=== PATIENT | female | born 1985 | race African-American/Black ===

== ENCOUNTER 2020-11-28 19:01 | Inpatient (IN) | payer OTHER, MEDICAID, SELFPAY ==
[2020-11-28 19:08] VITALS: BP 122/79; PULSE 84; RESP 18; TEMP 37.1; O2SAT 96; BMI 36.2
--- NOTE | 2020-11-28 19:46 | ED_ITS ---
HPI - Psych General Chief Complaint: Psychiatric Symptoms Stated Complaint: Crisis Source: patient Mode of arrival: ambulatory Limitations: no limitations History of Present Illness HPI Narrative: 35-year-old female presents with suicidal ideation and significant life stressors. States that her kids have been taken away, she got kicked out of the snf, feels depressed and wants to kill herself. MD complaint: suicidal ideation, feels depressed and substance abuse Onset (ago): week(s) Duration: constant History of same: Yes Relieving factors: none Exacerbating factors: drug use Context: recent drug abuse and significant life stressor Associated psychiatric symptoms: depression and suicidal ideation Associated symptoms: denies other symptoms If self harm: admits thoughts of self harm Related Data Allergies Allergy/AdvReac Type Severity Reaction Status Date / Time No Known Allergies Allergy Verified 11/28/20 19:31 Review of Systems Review of Systems: Constitutional: No Fever, No Chills ENT/Mouth: No Ear Pain, No Nasal Congestion, No sore throat Eyes: No Eye Pain, No Swelling, No Redness Cardiovascular: No Chest Pain, No SOB Respiratory: No Cough, No Sputum, No Dyspnea Gastrointestinal: No Nausea, No Vomiting, No Diarrhea, No Hematochezia, No Melena Genitourinary: No Dysuria, No Urinary Frequency, No Hematuria Musculoskeletal: No Myalgias Skin: No Skin Lesions, No rash Neuro: No Weakness, No Numbness, No Paresthesias, No Dizziness, No Headache Psych: positive Anxiety, positive Depression, positive SI, positive substance abuse Heme/Lymph: No Lymphadenopathy Endocrine: No Polyuria, No Polydipsia Yes all other systems are reviewed and are negative [facility] Past Medical History Attestation statement: The following information was validated with the patient. Source: old records reviewed Medical History Asthma COPD (chronic obstructive pulmonary disease) Social History Social History Advance Directives: No Advance Directives Information Provided: No Physical Exam Vital Signs: Vital Signs: Last Vital Signs Temp 98.8 F 11/28/20 19:08 Pulse 84 11/28/20 19:08 Resp 18 11/28/20 19:08 BP 122/79 11/28/20 19:08 Pulse Ox 96 11/28/20 19:08 Body Mass Index 36.2 Appearance: Alert. Oriented X3. Moderate emotional distress. Eyes: Pupils equal, round and reactive to light. ENT: Pharynx normal. Neck: Normal inspection. Neck supple. CVS: Normal heart rate and rhythm. Pulses normal. Respiratory: No respiratory distress. Breath sounds normal. Abdomen: Soft and nontender. Skin: Skin warm and dry. Normal skin color. Normal skin turgor. Extremities: No lower extremity edema. Gait well balanced well coordinated. Neuro: No motor deficit. No sensory deficit. Cranial nerves 2-12 intact. Course Course Course Narrative: 35-year-old female presents with suicidal ideation, substance abuse, with significant life stressors. Plan of care is for BHN consult, and labs. Urinalysis indicates UTI. Will treat with Macrobid. Physician observation started at this time. MDM - Psych Differential Diagnosis Differential diagnosis: Likely suicidal ideation, depression and substance abuse Medical Records Attestation: I reviewed the patient's medical records. Lab Data Attestation: I reviewed the patient's lab results. Labs: Lab Results 11/28/20 11/28/20 11/28/20 Range/Units 19:39 19:40 19:40 Urine Color YELLOW Urine Appearance CLEAR Urine pH 6.0 (5.0-8.0) Ur Specific [place] 1.025 (1.005-1.025) Urine Protein TRACE (NEG-TRACE) MG/DL Urine Glucose (UA) NEG (NEG) MG/DL Urine Ketones NEG (NEG) MG/DL Urine Blood 3+ H (NEG) Urine Nitrite NEG (NEG) Ur Leukocyte Esterase TRACE H (NEG) Urine RBC 1-4 (0) /HPF Urine WBC 1-4 (0-4) /HPF Ur Squamous Epith Cells TRACE /LPF Urine Bacteria NONE /LPF Urine Test NEGATIVE (NEGATIVE) Urine Opiates Screen (Not Detect) Urine Fentanyl Screen (Not Detect) Ur Barbiturates Screen (Not Detect) Ur Phencyclidine Scrn (Not Detect) Ur Amphetamines Screen (Not Detect) U Benzodiazepines Scrn (Not Detect) Urine Cocaine Screen (Not Detect) U Marijuana (THC) Screen (Not Detect) COVID-19 (RALPH) Negative (Negative) COVID-19 Clin Com See Note 11/28/20 Range/Units 19:40 Urine Color Urine Appearance Urine pH (5.0-8.0) Ur Specific [place] (1.005-1.025) Urine Protein (NEG-TRACE) MG/DL Urine Glucose (UA) (NEG) MG/DL Urine Ketones (NEG) MG/DL Urine Blood (NEG) Urine Nitrite (NEG) Ur Leukocyte Esterase (NEG) Urine RBC (0) /HPF Urine WBC (0-4) /HPF Ur Squamous Epith Cells /LPF Urine Bacteria /LPF Urine Test (NEGATIVE) Urine Opiates Screen Not Detected (Not Detect) Urine Fentanyl Screen Not Detected (Not Detect) Ur Barbiturates Screen Not Detected (Not Detect) Ur Phencyclidine Scrn Not Detected (Not Detect) Ur Amphetamines Screen Not Detected (Not Detect) U Benzodiazepines Scrn Not Detected (Not Detect) Urine Cocaine Screen POSITIVE H (Not Detect) U Marijuana (THC) Screen POSITIVE H (Not Detect) COVID-19 (RALPH) (Negative) COVID-19 Clin Com Discharge Plan Discharge Clinical Impression: Depression, UTI (urinary tract infection), Substance abuse
[2020-11-28 19:49] LABS: Appearance Urine CLEAR; Color Urine YELLOW; Glucose Urine UA NEG (NEG); Leukocyte Esterase Urine TRACE (NEG); Nitrite Urine NEG (NEG); Specific Gravity - Urine 1.025 (1.005-1.025); UACC Culture Trigger YES; Urine Blood 3+ (NEG); Urine Ketones NEG (NEG); Urine Protein TRACE MG/DL (NEG-TRACE)
[2020-11-28 19:56] LABS: UPreg QC Valid YES; Urine Pregnancy NEGATIVE (NEGATIVE)
[2020-11-28 20:01] LABS: Amphetamine Screen Urine Not Detected (Not Detect); Barbiturates, Urine Not Detected (Not Detect); Benzodiazepines Screen Urine Not Detected (Not Detect); Cannabinoid Screen Urine POSITIVE (Not Detect); Cocaine Screen Urine POSITIVE (Not Detect); Fentanyl, urine Not Detected (Not Detect); Opiate Screen Urine Not Detected (Not Detect); Phencyclidine Screen Urine Not Detected (Not Detect)
[2020-11-28 20:02] LABS: COVID-19 Test Negative (Negative); IDNOW Serial# 9DD0AD1C
[2020-11-28 20:15] LABS: Squamous Epithelial Cell Urine TRACE /LPF; UACC CULT YES
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
--- NOTE | 2020-11-29 00:42 | PC.NURSE ---
Patient in bed resting, no distress observed/reported, BHN referral completed/confirmed patient may be seen by BHN overnight, will continue to monitor.
--- NOTE | 2020-11-29 01:38 | PC.NURSE ---
ОЛЬГАN with patient.
[2020-11-29] MEDS: Nitrofurantoin Monohyd/M-Cryst 100 MG CAPSULE PO ×3 (02:51→21:43)
--- NOTE | 2020-11-29 05:53 | PC.NURSE ---
Patient slept through the night, no distress observed/reported, patient is positive for UTI being treated Macrobid 100 mg BID, patient is not currently on any medication, BHN assessed/patient compliant/disposition section 12 inpatient bed search, patient and provider aware, behavior appropriate, will continue to monitor.
--- NOTE | 2020-11-29 07:21 | PC.NURSE ---
Pt sleeping. Chest rise noted. Report received from Kodi FITZGERALD.
[2020-11-29 07:49] VITALS: BP 119/68; PULSE 68; RESP 14; TEMP 36.8; O2SAT 99
--- NOTE | 2020-11-29 10:56 | PC.NURSE ---
Pt awake now, ate full breakfast. States she's comfortable. Good eye contact,, steady on feet to BR, calm and cooperative. Aware of bedsearch.
--- NOTE | 2020-11-29 16:08 | ECG_ITS ---
Test Reason : MED CLEARANCE Blood Pressure : / mmHG Vent. Rate : 070 BPM Atrial Rate : 070 BPM P-R Int : 132 ms QRS Dur : 072 ms QT Int : 416 ms P-R-T Axes : 024 060 046 degrees QTc Int : 449 ms Normal sinus rhythm Low voltage QRS Borderline ECG No previous ECGs available Referred By: Generic ED Physician Electronically Signed By:DIPESH BARBER
[2020-11-29 17:07] LABS: MANUAL DIFF FLAG NO
[2020-11-29 17:09] LABS: Basophils Percent Auto 0.6 % (0-2); Eosinophils Absolute Auto 0.2 X10*3/uL (0.0-0.4); Eosinophils Percent Auto 3.5 % (0-4); Hematocrit 37.8 % (37-47); Hemoglobin 12.6 g/dl (12.0-16.0); Imm Gran Abs Auto 0.02 X10*3/uL (0.00-0.03); Imm Gran Pct Auto 0.3 % (0.0-0.4); Lymphocytes Absolute Auto 2.4 X10*3/uL (1.2-4.9); Lymphocytes Percent Auto 36.1 % (20-40); Mean Corpuscular HGB Conc 33.3 g/dl (31.0-35.0); Mean Corpuscular Hemoglobin 30.3 pg (27.0-33.0); Mean Corpuscular Volume 90.9 fL (80-98); Mean Platelet Volume 9.3 fL (9.4-12.3); Monocytes Absolute Auto 0.5 X10*3/uL (0.1-1.2); Neutrophils Absolute Auto 3.4 X10*3/uL (2.0-8.3); Neutrophils Percent Auto 51.5 % (45-73); Platelet Count 343 X10*3/uL (160-400); Red Blood Count 4.16 X10*6/uL (4.20-5.50); Red Cell Distribution Width 13.1 % (11.0-16.0); White Blood Count 6.5 X10*3/uL (4.8-10.8)
[2020-11-29 17:30] VITALS: BP 119/64; PULSE 83; TEMP 37.1; O2SAT 99
[2020-11-29 17:37] LABS: Alanine Aminotransferase 60 U/L (0-31); Albumin Level 3.8 g/dL (3.5-5.0); Alkaline Phosphatase 214 U/L (39-117); Anion Gap 10 (12-20); Aspartate Amino Transferase 38 U/L (5-31); Bilirubin Total 0.4 mg/dL (0.0-1.0); Blood Urea Nitrogen 11 mg/dL (9-16); Calcium 9.7 mg/dL (8.4-10.2); Carbon Dioxide 28 mmol/L (22-29); Chloride 105 mmol/L (96-108); Estimated Glomerular Filt Rate > 60; Glucose Random 96 mg/dL (60-115); Potassium 4.6 mmol/L (3.3-5.1); Sodium 138 mmol/L (135-145); Total Protein 6.9 g/dL (6.5-8.0)
[2020-11-29] MEDS: hydrOXYzine HCL 25 MG TABLET PO (21:42)
[2020-11-29 21:43] VITALS: BP 131/80; PULSE 70
[2020-11-29] MEDS: Prazosin HCL 1 MG CAPSULE 2 MG PO (21:43)
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
[2020-11-30 09:15] VITALS: BP 121/78; PULSE 75; RESP 14; TEMP 36.7; O2SAT 98
[2020-11-30] MEDS: Nitrofurantoin Monohyd/M-Cryst 100 MG CAPSULE PO ×2 (09:15→22:30)
[2020-11-30] MEDS: buPROPion HCl XL 150 MG TAB.ER.24H PO (09:15)
[2020-11-30] MEDS: Escitalopram Oxalate 10 MG TABLET PO (09:15)
--- NOTE | 2020-11-30 11:34 | HO.PSYCHPN ---
Subjective Subjective Date of Service: 11/30/20 Reason For Visit: SI, depression Subjective Notes: Conditional Voluntary Interim History: Patient seen. DW team. Patient seen in her room. She reports she was having SI because her children were taken away from her 11/19 and placed with her mother. She was already under DCF investigation. Her friend turned on me and informed DCF of her continued drinking and drug use. Cocaine + on admit. Patient says she still feels like her kds would be better off without her. She denies active SI or that she would hurt self on the unit. Denies AH. Reports she as off meds. Agreed to restart per admission note. Tolerating meds well. Medication Compliance: Yes Review of Systems Acute medical concerns: No Medical Review of Systems: unchanged Mental Status Exam Mental Status Exam Patient Appearance: Appropriate Patient Orientation: Person, Place, Time and Situation Level of Consciousness: Awake and Alert Patient Behavior: Cooperative, Passive, Timid and Poor Eye Contact Mood Description: Withdrawn, Constricted, Depressed and Sad Affect Description: Withdrawn, Depressed and Sad Patient Cognition Impaired: No Ability to Follow Directions: Excellent Speech Pattern: Monotone and Soft-Spoken Memory Description: Intact Hallucinations: None Delusions: Not Present Thought Process: Intact Thought Content: positive for Goal Oriented and positive for Linear Depressive Symptoms: Crying Spells, Hopelessness, Feelings of Guilt, Unhappiness and Thoughts of /Suicide Abnormal Motor Activity Signs and Symptoms: Psychomotor Retardation Judgement: Fair Diagnostics Vital Signs (24Hr): Vital Signs - 24 hr 11/29/20 17:30 11/29/20 21:43 11/30/20 09:15 Temperature 98.7 F 98.1 F Pulse Rate 83 70 75 Respiratory Rate 14 Blood Pressure 119/64 131/80 121/78 Pulse Oximetry 99 98 Body Mass Index 36.2 Labs Results: 11/29/20 17:01 11/29/20 17:01 Labs: Laboratory Results - last 48 hr 11/28/20 11/28/20 11/28/20 19:39 19:40 19:40 WBC RBC Hgb Hct MCV MCH MCHC RDW Plt Count MPV Immature Gran % (Auto) Neut % (Auto) Lymph % (Auto) [place] % (Auto) Eos % (Auto) Baso % (Auto) Lymph # (Auto) [place] # (Auto) Eos # (Auto) Baso # (Auto) Abs Immat Gran (auto) Absolute Neuts (auto) Absolute Nucleated RBC Nucleated RBC % (auto) Sodium Potassium Chloride Carbon Dioxide Anion Gap BUN Creatinine Estim Creat Clear Calc Estimated GFR Random Glucose Calcium Total Bilirubin AST ALT Alkaline Phosphatase Total Protein Albumin Urine Color YELLOW Urine Appearance CLEAR Urine pH 6.0 Ur Specific Abbott 1.025 Urine Protein TRACE Urine Glucose (UA) NEG Urine Ketones NEG Urine Blood 3+ H Urine Nitrite NEG Ur Leukocyte Esterase TRACE H Urine RBC 1-4 Urine WBC 1-4 Ur Squamous Epith Cells TRACE Urine Bacteria NONE Urine Test NEGATIVE Urine Opiates Screen Urine Fentanyl Screen Ur Barbiturates Screen Ur Phencyclidine Scrn Ur Amphetamines Screen U Benzodiazepines Scrn Urine Cocaine Screen U Marijuana (THC) Screen COVID-19 (RALPH) Negative COVID-19 Clin Com See Note 11/28/20 11/29/20 11/29/20 19:40 17:01 17:01 WBC 6.5 RBC 4.16 L Hgb 12.6 Hct 37.8 MCV 90.9 MCH 30.3 MCHC 33.3 RDW 13.1 Plt Count 343 MPV 9.3 L Immature Gran % (Auto) 0.3 Neut % (Auto) 51.5 Lymph % (Auto) 36.1 [place] % (Auto) 8.0 Eos % (Auto) 3.5 Baso % (Auto) 0.6 Lymph # (Auto) 2.4 [place] # (Auto) 0.5 Eos # (Auto) 0.2 Baso # (Auto) 0.0 Abs Immat Gran (auto) 0.02 Absolute Neuts (auto) 3.4 Absolute Nucleated RBC 0.000 Nucleated RBC % (auto) 0.0 Sodium 138 Potassium 4.6 Chloride 105 Carbon Dioxide 28 Anion Gap 10 L BUN 11 Creatinine 0.86 Estim Creat Clear Calc 95.0 Estimated GFR > 60 Random Glucose 96 Calcium 9.7 Total Bilirubin 0.4 AST 38 H ALT 60 H Alkaline Phosphatase 214 H Total Protein 6.9 Albumin 3.8 Urine Color Urine Appearance Urine pH Ur Specific Abbott Urine Protein Urine Glucose (UA) Urine Ketones Urine Blood Urine Nitrite Ur Leukocyte Esterase Urine RBC Urine WBC Ur Squamous Epith Cells Urine Bacteria Urine Test Urine Opiates Screen Not Detected Urine Fentanyl Screen Not Detected Ur Barbiturates Screen Not Detected Ur Phencyclidine Scrn Not Detected Ur Amphetamines Screen Not Detected U Benzodiazepines Scrn Not Detected Urine Cocaine Screen POSITIVE H U Marijuana (THC) Screen POSITIVE H COVID-19 ([facility]) COVID-19 Clin Com Medications Medications Current Medications Generic Name Dose Route Start Last Admin Trade Name Freq PRN Reason Stop Dose Admin Acetaminophen 650 mg 11/29/20 18:04 Acetaminophen 325 Mg Tablet PO Q6H PRN Headache/Pain Mild Scale (1-3) Al Hydroxide/Mg Hydroxide 30 ml 11/29/20 18:04 Magnesium Hydrox/Alum Hydrox 30 Ml Oral.Susp PO Q6H PRN Heartburn/Nausea Bupropion HCl 150 mg 11/30/20 09:00 11/30/20 09:15 Bupropion Hcl Xl 150 Mg Tab.Er.24h PO 150 mg DAILY ERMIAS Administration Escitalopram Oxalate 10 mg 11/30/20 09:00 11/30/20 09:15 Escitalopram Oxalate 10 Mg Tablet PO 10 mg DAILY ERMIAS Administration Hydroxyzine HCl 25 mg 11/29/20 18:04 11/29/20 21:42 Hydroxyzine Hcl 25 Mg Tablet PO 25 mg Q6H PRN Administration Anxiety Magnesium Hydroxide 30 ml 11/29/20 18:04 Milk Of Magnesia 30 Ml Oral.Susp PO DAILY PRN Constipation Nitrofurantoin Macrocrystals 100 mg 11/29/20 09:00 11/30/20 09:15 Nitrofurantoin Monohyd/M-Cryst 100 Mg Capsule PO 12/05/20 21:01 100 mg Q12H ERMIAS Administration Prazosin HCl 2 mg 11/29/20 21:00 11/29/20 21:43 Prazosin Hcl 1 Mg Capsule PO 2 mg BEDTIME ERMIAS Administration Protocol Trazodone HCl 50 mg 11/29/20 18:04 Trazodone Hcl 50 Mg Tablet PO BEDTIME PRN Insomnia Allergies Allergies Allergy/AdvReac Type Severity Reaction Status Date / Time No Known Allergies Allergy Verified 11/28/20 19:31 Assessment & Plan Assessment & Plan (1) Cocaine use disorder: Status: Acute Code(s): F14.10 - Cocaine abuse, uncomplicated (2) PTSD (post-traumatic stress disorder): Status: Acute Code(s): F43.10 - Post-traumatic stress disorder, unspecified (3) MDD (major depressive disorder), recurrent episode, moderate: Status: Acute Code(s): F33.1 - Major depressive disorder, recurrent, moderate (4) Anxiety disorder, unspecified: Status: Acute Code(s): F41.9 - Anxiety disorder, unspecified Assessment and Plan: Viv is a 35 y.o. Female who carries a diagnosis of MDD, recurrent, AL, PTSD, and cocaine use disorder. She is currently presenting with sx of depression, anxiety, poor sleep, flashbacks, and nightmares. She is interested in obtaining OP therapy services, discussed DBT. She also plans to work with [facility] on getting custody of her children back. Open to substance use treatment. Says her past med regimen was helpful for her and she would like to re-start these meds including citalopram, wellbutrin XL, prazosin, and vistaril. Will start lexapro on unit, as citalopram is not on formulary.? Plan: 1. start lexapro 10 mg QD for sx of depression, anxiety, and PTSD- risks and benefits reviewed. 2. Start wellbutrin XL 150 mg QD for adjunct depression 3. Start prazosin 2 mg QHS for PTSD, hyperarousal, nightmares 4. Monitor response to medications. Monitor for safety in the milieu. Discharge on stabilization. Patient seen. Chart reviewed. Discussed with team. Obtain collateral contact info?as needed Greater than 50% of the session was spent on counseling and/or coordination of care Reason for contiued inpatient stay Substantial Risk for: harm to self and rapid decompensation
--- NOTE | 2020-11-30 13:01 | PC.NURSE ---
Microbiology report indicates urine is positive for Strep B. Dr Gaona Hospitalist informed by tiger text and responded, macrobid should be good.
[2020-11-30 18:00] VITALS: BP 134/61; PULSE 79; RESP 18; TEMP 36.2; O2SAT 97
[2020-11-30 22:30] VITALS: BP 135/78; PULSE 88
[2020-11-30] MEDS: hydrOXYzine HCL 25 MG TABLET PO (22:30)
[2020-11-30] MEDS: Prazosin HCL 1 MG CAPSULE 2 MG PO (22:30)
[2020-11-30] MEDS: traZODone HCL 50 MG TABLET PO (22:30)
[2020-12-01 08:30] VITALS: BP 110/58; PULSE 87; RESP 16; TEMP 36.6; O2SAT 98
[2020-12-01] MEDS: buPROPion HCl XL 150 MG TAB.ER.24H PO (08:36)
[2020-12-01] MEDS: Nitrofurantoin Monohyd/M-Cryst 100 MG CAPSULE PO ×2 (08:36→21:43)
[2020-12-01] MEDS: Escitalopram Oxalate 10 MG TABLET PO (08:36)
[2020-12-01] MEDS: hydrOXYzine HCL 25 MG TABLET PO ×2 (15:00→21:43)
--- NOTE | 2020-12-01 20:50 | P.PNPSI_ITS ---
Subjective Subjective Date of Service: 12/01/20 Reason For Visit: SI, depression Interim History: Patient seen. DW team. Patient has been getting out of her room. She is more engaged in the milieu. She feels more hopeful. She is tolerating restarting her meds. She denies SI. Medication Compliance: Yes Side effects from medications: No Attending Groups: Yes Review of Systems Review of Systems Constitutional: No Fever, No Chills ENT/Mouth: No Ear Pain, No Nasal Congestion, No sore throat Eyes: No Eye Pain, No Swelling, No Redness Cardiovascular: No Chest Pain, No SOB Respiratory: No Cough, No Sputum, No Dyspnea Gastrointestinal: No Nausea, No Vomiting, No Diarrhea, No Hematochezia, No Melena Genitourinary: No Dysuria, No Urinary Frequency, No Hematuria Musculoskeletal: No Myalgias Skin: No Skin Lesions, No rash Neuro: No Weakness, No Numbness, No Paresthesias, No Dizziness, No Headache Psych: positive Anxiety, positive Depression, positive SI, positive substance abuse Heme/Lymph: No Lymphadenopathy Endocrine: No Polyuria, No Polydipsia Yes all other systems are reviewed and are negative Mental Status Exam Mental Status Exam Narrative: A&O. In hospital attire, somewhat unkempt, hair dyed, overweight. Moderate eye contact, attentive. No Tics or Tremors. No abnormal involuntary movements. Calm, cooperative, engaged- somewhat withdrawn. Non-pressured speech, non-spontaneous with regular rate and rhythm, normal volume and prosody. No prolonged speech latency or dysarthria. Mood is ?depressed,? affect is tearful, dysphoric. Denies SI/SIB/HI upon inquiry. Denies A/VH or delusional thought content. Thoughts are coherent, organized. No known cognitive or memory impairment. Insight/ Judgment fair and adequate. In the milieu, she is calm and appropriate with behaviors. Patient Appearance: Appropriate Patient Orientation: Person, Place, Time and Situation Level of Consciousness: Awake and Alert Patient Behavior: Cooperative, Passive, Timid and Poor Eye Contact Mood Description: Withdrawn, Constricted, Depressed and Sad Affect Description: Withdrawn, Depressed and Sad Patient Cognition Impaired: No Ability to Follow Directions: Excellent Speech Pattern: Monotone and Soft-Spoken Memory Description: Intact Diagnostics Vital Signs (24Hr): Vital Signs - 24 hr 11/30/20 22:30 12/01/20 08:30 Temperature 97.9 F Pulse Rate 88 87 Respiratory Rate 16 Blood Pressure 135/78 110/58 L Pulse Oximetry 98 Body Mass Index 36.2 Labs Results: 11/29/20 17:01 11/29/20 17:01 Medications Medications Current Medications Generic Name Dose Route Start Last Admin Trade Name Freq PRN Reason Stop Dose Admin Acetaminophen 650 mg 11/29/20 18:04 Acetaminophen 325 Mg Tablet PO Q6H PRN Headache/Pain Mild Scale (1-3) Al Hydroxide/Mg Hydroxide 30 ml 11/29/20 18:04 Magnesium Hydrox/Alum Hydrox 30 Ml Oral.Susp PO Q6H PRN Heartburn/Nausea Bupropion HCl 150 mg 11/30/20 09:00 12/01/20 08:36 Bupropion Hcl Xl 150 Mg Tab.Er.24h PO 150 mg DAILY ERMIAS Administration Escitalopram Oxalate 10 mg 11/30/20 09:00 12/01/20 08:36 Escitalopram Oxalate 10 Mg Tablet PO 10 mg DAILY ERMIAS Administration Hydroxyzine HCl 25 mg 11/29/20 18:04 12/01/20 15:00 Hydroxyzine Hcl 25 Mg Tablet PO 25 mg Q6H PRN Administration Anxiety Magnesium Hydroxide 30 ml 11/29/20 18:04 Milk Of Magnesia 30 Ml Oral.Susp PO DAILY PRN Constipation Nitrofurantoin Macrocrystals 100 mg 11/29/20 09:00 12/01/20 08:36 Nitrofurantoin Monohyd/M-Cryst 100 Mg Capsule PO 12/05/20 21:01 100 mg Q12H ERMIAS Administration Prazosin HCl 2 mg 11/29/20 21:00 11/30/20 22:30 Prazosin Hcl 1 Mg Capsule PO 2 mg BEDTIME ERMIAS Administration Protocol Trazodone HCl 50 mg 11/29/20 18:04 11/30/20 22:30 Trazodone Hcl 50 Mg Tablet PO 50 mg BEDTIME PRN Administration Insomnia Allergies Allergies Allergy/AdvReac Type Severity Reaction Status Date / Time No Known Allergies Allergy Verified 11/28/20 19:31 Assessment & Plan Assessment & Plan (1) Cocaine use disorder: Status: Acute Code(s): F14.10 - Cocaine abuse, uncomplicated (2) PTSD (post-traumatic stress disorder): Status: Acute Code(s): F43.10 - Post-traumatic stress disorder, unspecified (3) MDD (major depressive disorder), recurrent episode, moderate: Status: Acute Code(s): F33.1 - Major depressive disorder, recurrent, moderate (4) Anxiety disorder, unspecified: Status: Acute Code(s): F41.9 - Anxiety disorder, unspecified Assessment and Plan: Viv is a 35 y.o. Female who carries a diagnosis of MDD, recurrent, AL, P TSD, and cocaine use disorder. She is currently presenting with sx of depression, anxiety, poor sleep, flashbacks, and nightmares. She is interested in obtaining OP therapy services, discussed DBT. She also plans to work with [facility] on getting custody of her children back. Open to substance use treatment. Says her past med regimen was helpful for her and she would like to re-start these meds including citalopram, wellbutrin XL, prazosin, and vistaril. Will start lexapro on unit, as citalopram is not on formulary.? Plan: 1. lexapro 10 mg QD for sx of depression, anxiety, and PTSD- risks and benefits reviewed. 2. wellbutrin XL 150 mg QD for adjunct depression 3. prazosin 2 mg QHS for PTSD, hyperarousal, nightmares 4. Monitor response to medications. Monitor for safety in the milieu. Discharge on stabilization. Patient seen. Chart reviewed. Discussed with team. Obtain collateral contact info?as needed Greater than 50% of the session was spent on counseling and/or coordination of care Reason for contiued inpatient stay Substantial Risk for: harm to self
[2020-12-01 21:40] VITALS: BP 135/78; PULSE 88; TEMP 36.8; O2SAT 98
[2020-12-01 21:43] VITALS: BP 135/78; PULSE 88
[2020-12-01] MEDS: traZODone HCL 50 MG TABLET PO (21:43)
[2020-12-01] MEDS: Prazosin HCL 1 MG CAPSULE 2 MG PO (21:43)
[2020-12-02 08:48] VITALS: BP 105/60; PULSE 74; RESP 16; TEMP 36.2; O2SAT 96
[2020-12-02] MEDS: Nitrofurantoin Monohyd/M-Cryst 100 MG CAPSULE PO ×2 (08:52→20:49)
[2020-12-02] MEDS: Escitalopram Oxalate 10 MG TABLET PO (08:52)
[2020-12-02] MEDS: buPROPion HCl XL 150 MG TAB.ER.24H PO (08:52)
--- NOTE | 2020-12-02 14:51 | HO.PSYCHPN ---
Subjective Subjective Date of Service: 12/02/20 Reason For Visit: SI, depression Interim History: pt reports she is feeling better than at admission. denies SI. has been on this regimen before and it has been helpful for her. agreeable to the plan to restart the medication and arrange for aftercare once stable. per staff, no SI/HI. reportedly believes she is despite negative test. no other notable events or behaviors. Mental Status Exam Mental Status Exam Narrative: A&O. In hospital attire, somewhat unkempt, hair dyed, overweight. Moderate eye contact, attentive. No Tics or Tremors. No abnormal involuntary movements. Calm, cooperative, engaged- somewhat withdrawn. Non-pressured speech, non-spontaneous with regular rate and rhythm, normal volume and prosody. No prolonged speech latency or dysarthria. Mood is ?better,? affect is constricted and non-labile. Denies SI upon inquiry. Thoughts are coherent, organized. No known cognitive or memory impairment. Insight/ Judgment fair and adequate. Patient Appearance: Appropriate Patient Orientation: Person, Place, Time and Situation Level of Consciousness: Awake and Alert Patient Behavior: Cooperative, Passive, Timid and Poor Eye Contact Mood Description: Withdrawn, Constricted, Depressed and Sad Affect Description: Withdrawn, Depressed and Sad Patient Cognition Impaired: No Ability to Follow Directions: Excellent Speech Pattern: Monotone and Soft-Spoken Memory Description: Intact Diagnostics Vital Signs (24Hr): Vital Signs - 24 hr 12/01/20 21:40 12/01/20 21:43 12/02/20 08:48 Temperature 98.2 F 97.2 F Pulse Rate 88 88 74 Respiratory Rate 16 Blood Pressure 135/78 135/78 105/60 Pulse Oximetry 98 96 Body Mass Index 36.2 Labs Results: 11/29/20 17:01 11/29/20 17:01 Medications Medications Current Medications Generic Name Dose Route Start Last Admin Trade Name Freq PRN Reason Stop Dose Admin Acetaminophen 650 mg 11/29/20 18:04 Acetaminophen 325 Mg Tablet PO Q6H PRN Headache/Pain Mild Scale (1-3) Al Hydroxide/Mg Hydroxide 30 ml 11/29/20 18:04 Magnesium Hydrox/Alum Hydrox 30 Ml Oral.Susp PO Q6H PRN Heartburn/Nausea Bupropion HCl 150 mg 11/30/20 09:00 12/02/20 08:52 Bupropion Hcl Xl 150 Mg Tab.Er.24h PO 150 mg DAILY ERMIAS Administration Escitalopram Oxalate 10 mg 11/30/20 09:00 12/02/20 08:52 Escitalopram Oxalate 10 Mg Tablet PO 10 mg DAILY ERMIAS Administration Hydroxyzine HCl 25 mg 11/29/20 18:04 12/01/20 21:43 Hydroxyzine Hcl 25 Mg Tablet PO 25 mg Q6H PRN Administration Anxiety Magnesium Hydroxide 30 ml 11/29/20 18:04 Milk Of Magnesia 30 Ml Oral.Susp PO DAILY PRN Constipation Nitrofurantoin Macrocrystals 100 mg 11/29/20 09:00 12/02/20 08:52 Nitrofurantoin Monohyd/M-Cryst 100 Mg Capsule PO 12/05/20 21:01 100 mg Q12H ERMIAS Administration Prazosin HCl 2 mg 11/29/20 21:00 12/01/20 21:43 Prazosin Hcl 1 Mg Capsule PO 2 mg BEDTIME ERMIAS Administration Protocol Trazodone HCl 50 mg 12/02/20 21:00 Trazodone Hcl 50 Mg Tablet PO BEDTIME ERMIAS Allergies Allergies Allergy/AdvReac Type Severity Reaction Status Date / Time No Known Allergies Allergy Verified 11/28/20 19:31 Assessment & Plan Assessment & Plan (1) Cocaine use disorder: Status: Acute Code(s): F14.10 - Cocaine abuse, uncomplicated (2) PTSD (post-traumatic stress disorder): Status: Acute Code(s): F43.10 - Post-traumatic stress disorder, unspecified (3) MDD (major depressive disorder), recurrent episode, moderate: Status: Acute Code(s): F33.1 - Major depressive disorder, recurrent, moderate (4) Anxiety disorder, unspecified: Status: Acute Code(s): F41.9 - Anxiety disorder, unspecified Assessment and Plan: Viv is a 35 y.o. Female who carries a diagnosis of MDD, recurrent, AL, PTSD, and cocaine use disorder. She is currently presenting with sx of depression, anxiety, poor sleep, flashbacks, and nightmares. She is interested in obtaining OP therapy services, discussed DBT. She also plans to work with [facility] on getting custody of her children back. Open to substance use treatment. Says her past med regimen was helpful for her and she would like to re-start these meds including citalopram, wellbutrin XL, prazosin, and vistaril. Will start lexapro on unit, as citalopram is not on formulary.? Plan: 1. lexapro 10 mg QD for sx of depression, anxiety, and PTSD- risks and benefits reviewed. 2. wellbutrin XL 150 mg QD for adjunct depression. increase dosing to 300 mg daily on . 3. prazosin 2 mg QHS for PTSD, hyperarousal, nightmares 4. trazodone 50 mg QHS for insomnia. 5. Monitor response to medications. Monitor for safety in the milieu. Discharge on stabilization. Patient seen. Chart reviewed. Discussed with team. Greater than 50% of the session was spent on counseling and/or coordination of care Reason for contiued inpatient stay Substantial Risk for: harm to self, inability to function and med/psych decompensation
[2020-12-02] MEDS: hydrOXYzine HCL 25 MG TABLET PO (16:39)
[2020-12-02 18:00] VITALS: BP 124/80; PULSE 85; RESP 18; TEMP 36.4; O2SAT 99
[2020-12-02] MEDS: traZODone HCL 50 MG TABLET PO (20:48)
[2020-12-02 20:49] VITALS: BP 124/80; PULSE 85
[2020-12-02] MEDS: Prazosin HCL 1 MG CAPSULE 2 MG PO (20:49)
[2020-12-02] MEDS: Milk of Magnesia 30 ML ORAL.SUSP PO (20:53)
[2020-12-03 08:31] VITALS: BP 123/63; PULSE 88; RESP 18; TEMP 36.6; O2SAT 98
[2020-12-03] MEDS: buPROPion HCl XL 150 MG TAB.ER.24H PO (08:39)
[2020-12-03] MEDS: Escitalopram Oxalate 10 MG TABLET PO (08:39)
[2020-12-03] MEDS: Nitrofurantoin Monohyd/M-Cryst 100 MG CAPSULE PO ×2 (08:39→20:28)
[2020-12-03] MEDS: hydrOXYzine HCL 25 MG TABLET PO ×2 (11:33→20:30)
[2020-12-03 20:10] VITALS: BP 110/75; PULSE 83; RESP 18; TEMP 36.8; O2SAT 97
[2020-12-03] MEDS: Prazosin HCL 1 MG CAPSULE 2 MG PO (20:27)
[2020-12-03] MEDS: traZODone HCL 50 MG TABLET PO (20:28)
[2020-12-04 06:00] VITALS: BP 118/74; PULSE 79; RESP 16; TEMP 36.4; O2SAT 98
[2020-12-04] MEDS: buPROPion HCl XL 300 MG TAB.ER.24H PO (08:09)
[2020-12-04] MEDS: Escitalopram Oxalate 10 MG TABLET PO (08:09)
[2020-12-04] MEDS: Nitrofurantoin Monohyd/M-Cryst 100 MG CAPSULE PO ×2 (08:09→21:23)
[2020-12-04] MEDS: Acetaminophen 325 MG TABLET 650 MG PO ×2 (08:09→21:24)
--- NOTE | 2020-12-04 11:03 | P.PNPSP_ITS ---
Subjective Subjective Date of Service: 12/05/20 Reason For Visit: SI, depression Subjective Notes: Diaz Warning and Conditional Voluntary Healthcare Proxy: No Guardianship: No Medical Problems Affecting Mental Status: No Interim History: 12/03: Patient seen and discussed with team. Patient evaluated this afternoon and upon interview she reports she is angry with the [facility], as they have threatened to throw away her property in the apartment due to her not being there, has been working with staff to get an extension on allowance to reside there. She is also working with staff on a referral for [facility] and obtaining insurance. She reports she is feeling relieved that her kids are now residing with her mom and everything is all situated with that, feels Im better than i was when i first came in. Reports positive benefit on medication, has been re-started on previous med regimen that was helpful for her. Would still like to increase wellbutrin XL to 300 mg due to past benefit for depression. Says she is still depressed, but overall not as hopeless. Sleeping okay, appetite is good. Feels rested in the day. In the milieu, patient is safe and appropriate in behavior. Denies SI/SIB/HI upon inquiry. Denies irritability or assaultive ideation. Says she feels safe. Medication Compliance: Yes Side effects from medications: No Attending Groups: Yes Review of Systems Acute medical concerns: No Medical Review of Systems: unchanged Mental Status Exam Mental Status Exam Narrative: Patient Appearance:?Appropriate Patient Orientation:?Person, Place, Time and Situation Level of Consciousness:?Awake and Alert Patient Behavior:?Cooperative, Passive, Timid and Poor Eye Contact Mood Description:?Depressed Affect Description:?brighter Patient Cognition Impaired:?No Ability to Follow Directions:?Excellent Speech Pattern:?Monotone and Soft-Spoken Memory Description:?Intact Diagnostics Vital Signs (24Hr): Vital Signs - 24 hr 12/03/20 20:10 12/04/20 06:00 Temperature 98.3 F 97.6 F Pulse Rate 83 79 Respiratory Rate 18 16 Blood Pressure 110/75 118/74 Pulse Oximetry 97 98 Body Mass Index 36.2 Labs Results: 11/29/20 17:01 11/29/20 17:01 Assessment & Plan Assessment & Plan (1) MDD (major depressive disorder), recurrent episode, moderate: Status: Acute Code(s): F33.1 - Major depressive disorder, recurrent, moderate (2) Cocaine use disorder: Status: Acute Code(s): F14.10 - Cocaine abuse, uncomplicated Assessment and Plan: Viv is a 35 y.o. Female who carries a diagnosis of MDD, recurrent, AL, PTSD, and cocaine use disorder. She is currently presenting with sx of depression, anxiety, poor sleep, flashbacks, and nightmares. She is interested in obtaining OP therapy services, discussed DBT. She also plans to work with [facility] on getting custody of her children back. Open to substance use treatment. Says her past med regimen was helpful for her and she would like to re-start these meds including citalopram, wellbutrin XL, prazosin, and vistaril. Will start lexapro on unit, as citalopram is not on formulary.? Plan: 1.? lexapro 10 mg QD for sx of depression, anxiety, and PTSD- risks and benefits reviewed. 2.? Increase wellbutrin XL to 300 mg QD for adjunct depression.? 3.? prazosin 2 mg QHS for PTSD, hyperarousal, nightmares 4.? trazodone 50 mg QHS for insomnia. 5. Monitor response to medications. Monitor for safety in the milieu. Discharge on stabilization. Patient seen. Chart reviewed. Certification I certify that partial hospital treatment is medically necessary due to the symptoms and problems resulting from the patient's mental illness and the failure to treat the patient at the partial hospital level of care would likely result in the patient requiring inpatient psychiatric care which could not be prevented at a less intensive level of care. Greater than 50% of the session was spent on counseling and/or coordination of care Discharge Plan Discharge Patient Disposition: [facility] Discharge Diagnosis: PTSD, cocaine use disorder, MDD Referrals: [facility] [Other] (Call the number above to self-refer and complete a phone intake. Then call daily after to check on bed availability) [facility] [Other] (Referral submitted. Call daily to check on bed availability) [facility] [Other] (Referral submitted. Call daily to check on bed availability) Primary Care Provider (PCP) [Other] (Call to request a PCP through the [place] [facility], either Dr. Regalado or Dr. Keller. Insurance plan will reflect who you choose as PCP) Keesha Contreras (therapy intake) [Other] - 12/11/20 10:00 am (Appointment is in office. If you miss this intake your psychiatry appointment will be cancelled, so please call to reschedule if you cannot make the appointment) Mary Bowie (psyhciatrist) [Other] - 12/30/20 10:00 am (Appointment is t [facility]) Mary Bowie (psychiatrist) [Other] - 01/27/21 1:00 pm (Appointment is telehealth) Physician,None [Primary Care Provider] - 1 Week Discharge Medications: New trazodone 50 mg Tablet 50 mg PO BEDTIME 30 Days Qty: 30 RF: 0 prazosin 1 mg Capsule 2 mg PO BEDTIME 30 Days Qty: 60 RF: 0 hydroxyzine HCl 25 mg Tablet 25 mg PO Q6H PRN (Reason: Anxiety) 30 Days Qty: 60 RF: 0 escitalopram oxalate 10 mg Tablet 10 mg PO DAILY 30 Days Qty: 30 RF: 0 bupropion HCl 300 mg Tablet Extended Release 24 Hr 300 mg PO DAILY 30 Days Qty: 30 RF: 0 nitrofurantoin monohyd/m-cryst 100 mg Capsule 100 mg PO Q12H 1 Days Qty: 1 RF: 0 Discharge Orders: Discharge Order (Routine); Ordered 12/05/20 Ordered By: Rahul Dow Diet: advance to usual diet Activity on Discharge: As tolerated Stand Alone Forms: Patient Portal Discharge page, Community Support Care Plan Goals: remain abstinent from substances of abuse and independently living in the community Health Concerns: COPD Asthma Plan of Treatment: take medications as prescribed, attend appointments as scheduled Assessment: not at imminent risk of harm to self or others Discharge Date/Time: 12/05/20 10:43
--- NOTE | 2020-12-04 11:43 | HO.PSYCHPN ---
Subjective Subjective Date of Service: 12/04/20 Reason For Visit: SI, depression Interim History: pt reports she has a lot of things going on outside the hospital so she is anxious to discharge. she is willing to wait another day, however, for her insurance to come through so aftercare appointments can be made. she reports sleeping adequately well on her current regimen and declines any changes. she is aware today is her first day at wellbutrin 300 mg daily and will be monitoring for side effects. per staff, no notable events or behaviors. feeling anxious to discharge. Mental Status Exam Mental Status Exam Narrative: A&O. appropriately dressed and groomed. Moderate eye contact, attentive. No Tics or Tremors. No abnormal involuntary movements. Calm, cooperative, engaged. Non-pressured speech, spontaneous with regular rate and rhythm, normal volume and prosody. No prolonged speech latency or dysarthria. affect is more flexible and non-labile. Thoughts are coherent, organized. No known cognitive or memory impairment. Insight/ Judgment fair and adequate. Diagnostics Vital Signs (24Hr): Vital Signs - 24 hr 12/03/20 20:10 12/04/20 06:00 Temperature 98.3 F 97.6 F Pulse Rate 83 79 Respiratory Rate 18 16 Blood Pressure 110/75 118/74 Pulse Oximetry 97 98 Body Mass Index 36.2 Labs Results: 11/29/20 17:01 11/29/20 17:01 Medications Medications Current Medications Generic Name Dose Route Start Last Admin Trade Name Freq PRN Reason Stop Dose Admin Acetaminophen 650 mg 11/29/20 18:04 12/04/20 08:09 Acetaminophen 325 Mg Tablet PO 650 mg Q6H PRN Administration Headache/Pain Mild Scale (1-3) Al Hydroxide/Mg Hydroxide 30 ml 11/29/20 18:04 Magnesium Hydrox/Alum Hydrox 30 Ml Oral.Susp PO Q6H PRN Heartburn/Nausea Bupropion HCl 300 mg 12/04/20 09:00 12/04/20 08:09 Bupropion Hcl Xl 300 Mg Tab.Er.24h PO 300 mg DAILY ERMIAS Administration Escitalopram Oxalate 10 mg 11/30/20 09:00 12/04/20 08:09 Escitalopram Oxalate 10 Mg Tablet PO 10 mg DAILY ERMIAS Administration Hydroxyzine HCl 25 mg 11/29/20 18:04 12/03/20 20:30 Hydroxyzine Hcl 25 Mg Tablet PO 25 mg Q6H PRN Administration Anxiety Magnesium Hydroxide 30 ml 11/29/20 18:04 12/02/20 20:53 Milk Of Magnesia 30 Ml Oral.Susp PO 30 ml DAILY PRN Administration Constipation Nitrofurantoin Macrocrystals 100 mg 11/29/20 09:00 12/04/20 08:09 Nitrofurantoin Monohyd/M-Cryst 100 Mg Capsule PO 12/05/20 21:01 100 mg Q12H ERMIAS Administration Prazosin HCl 2 mg 11/29/20 21:00 12/03/20 20:27 Prazosin Hcl 1 Mg Capsule PO 2 mg BEDTIME ERMIAS Administration Protocol Trazodone HCl 50 mg 12/02/20 21:00 12/03/20 20:28 Trazodone Hcl 50 Mg Tablet PO 50 mg BEDTIME ERMIAS Administration Allergies Allergies Allergy/AdvReac Type Severity Reaction Status Date / Time No Known Allergies Allergy Verified 11/28/20 19:31 Assessment & Plan Assessment & Plan (1) MDD (major depressive disorder), recurrent episode, moderate: Status: Acute Code(s): F33.1 - Major depressive disorder, recurrent, moderate (2) Cocaine use disorder: Status: Acute Code(s): F14.10 - Cocaine abuse, uncomplicated Assessment and Plan: Viv is a 35 y.o. Female who carries a diagnosis of MDD, recurrent, AL, PTSD, and cocaine use disorder. She is currently presenting with sx of depression, anxiety, poor sleep, flashbacks, and nightmares. She is interested in obtaining OP therapy services, discussed DBT. She also plans to work with [facility] on getting custody of her children back. Open to substance use treatment. Says her past med regimen was helpful for her and she would like to re-start these meds including citalopram, wellbutrin XL, prazosin, and vistaril. Will start lexapro on unit, as citalopram is not on formulary.? Plan: 1.? lexapro 10 mg QD for sx of depression, anxiety, and PTSD- risks and benefits reviewed. 2.? Increased wellbutrin XL to 300 mg daily as of 12/04 for adjunct depression.? 3.? prazosin 2 mg QHS for PTSD, hyperarousal, nightmares 4.? trazodone 50 mg QHS for insomnia. 5. Monitor response to medications. Monitor for safety in the milieu. Discharge on stabilization. Patient seen. Chart reviewed. Greater than 50% of the session was spent on counseling and/or coordination of care Reason for contiued inpatient stay Substantial Risk for: harm to self
[2020-12-04] MEDS: hydrOXYzine HCL 25 MG TABLET PO ×2 (13:51→21:23)
[2020-12-04 21:20] VITALS: BP 127/92; PULSE 88; TEMP 36.9; O2SAT 97
[2020-12-04 21:23] VITALS: BP 127/92; PULSE 88
[2020-12-04] MEDS: traZODone HCL 50 MG TABLET PO (21:23)
[2020-12-04] MEDS: Prazosin HCL 1 MG CAPSULE 2 MG PO (21:23)
[2020-12-05] MEDS: Escitalopram Oxalate 10 MG TABLET PO (08:41)
[2020-12-05] MEDS: Nitrofurantoin Monohyd/M-Cryst 100 MG CAPSULE PO (08:41)
[2020-12-05] MEDS: buPROPion HCl XL 300 MG TAB.ER.24H PO (08:41)
[2020-12-05] MEDS: hydrOXYzine HCL 25 MG TABLET PO (08:44)
[2020-12-05 09:52] VITALS: BP 120/80; PULSE 70; TEMP 36.6; O2SAT 98
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
== END 2020-12-05 10:43 | disposition home or self-care (01) | DRG 751 ==
LOC: HO.ED 11-29 18:22 → HO.PADLT16 11-29 18:26
PROVIDERS: Admitting Provider Registered Nurse; Emergency Provider Emergency Medicine Emergency Medical Services; Visit Provider Psychiatry & Neurology Psychiatry
DX: F33.1 Major depressive disorder, recurrent, moderate (principal); R45.851 Suicidal ideations; F14.10 Cocaine abuse, uncomplicated; N39.0 Urinary tract infection, site not specified; F17.210 Nicotine dependence, cigarettes, uncomplicated; F43.10 Post-traumatic stress disorder, unspecified; F41.9 Anxiety disorder, unspecified; Z20.822 Contact with and (suspected) exposure to COVID-19; Z71.6 Tobacco abuse counseling; Z79.899 Other long term (current) drug therapy
CPT/HCPCS: 36415; 80053; 80307; 81001; 81025; 85025; 87086; 87147; 87635; 93005; 99232; 99285

== ENCOUNTER 2021-09-12 10:29 | Emergency (ER) | payer OTHER, SELFPAY ==
--- NOTE | ~2021-09-12 | XR_ITS ---
EXAMINATION: XR MANDIBLE CLINICAL INFORMATION: FO and lower lip. COMPARISON: None TECHNIQUE: 4 views of the mandible were obtained. FINDINGS: 2 similar nail-shaped piercings are seen in the region of the lower lip. The superficial small ball component on the right is not visualized. Bilateral nasal piercing are seen in place as well. Multiple dental fillings are seen bilaterally. The mandible is intact. The paranasal sinuses are clear. Possible swelling of the lower lip. XR/XR mandible <4V IMPRESSION: Several piercings as detailed above with possible associated swelling in the lower lobe without other significant abnormality.
[2021-09-12 10:33] VITALS: BP 147/98; PULSE 100; RESP 17; TEMP 36.6; O2SAT 98; BMI 40.3
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
[2021-09-12] MEDS: Lidocaine HCl 1 % MPF 5 ML VIAL SUBCUT (11:47)
[2021-09-12] MEDS: Diphth,Pertus(ACell),Tet Adult 0.5 ML SYRINGE IM (13:00)
[2021-09-12] MEDS: Lidocaine HCl 1 % MPF 5 ML VIAL 10 ML SUBCUT (14:23)
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
== END 2021-09-12 14:56 | disposition home or self-care (01) ==
PROVIDERS: Emergency Provider Emergency Medicine Emergency Medical Services
DX: S00.551A Superficial foreign body of lip, initial encounter (principal); Y28.9XXA Contact with unspecified sharp object, undetermined intent, initial encounter; Y93.9 Activity, unspecified; Y92.9 Unspecified place or not applicable; Y99.9 Unspecified external cause status; Z79.899 Other long term (current) drug therapy
CPT/HCPCS: 40804; 70100; 90471; 90715; 99283; 99284

== ENCOUNTER 2022-02-14 19:06 | Emergency (ER) | payer OTHER, SELFPAY | END 2022-02-14 22:07 | disposition left against medical advice (07) | PROVIDERS: Emergency Provider Emergency Medicine | DX: R69 Illness, unspecified (principal) ==

== ENCOUNTER 2022-10-06 22:52 | Emergency (ER) | payer OTHER, SELFPAY ==
[2022-10-06 23:20] VITALS: BP 127/88; PULSE 93; RESP 18; TEMP 37.1; O2SAT 96; BMI 39.9
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
[2022-10-07 00:23] LABS: IDNOW Serial# 08D9AD1C
[2022-10-07 00:24] LABS: Strep A Nucleic Acid Negative (Negative)
[2022-10-07 00:42] LABS: Influenza A PCR NEGATIVE (Negative); Influenza B PCR NEGATIVE (Negative); Resp Syncy Virus RNA Qual PCR NEGATIVE (Negative); SARS COV2 PCR INHOUSE NEGATIVE (Negative)
== END 2022-10-07 01:14 | disposition home or self-care (01) ==
PROVIDERS: Emergency Provider Emergency Medicine; PCP Internal Medicine
DX: J02.9 Acute pharyngitis, unspecified (principal); Z20.822 Contact with and (suspected) exposure to COVID-19; Z20.828 Contact with and (suspected) exposure to other viral communicable diseases
CPT/HCPCS: 0241U; 87651; 99283; 99284